=== PATIENT | male | born 1990 | race Caucasian/White ===

== ENCOUNTER 2018-04-20 09:40 | Emergency (ER) | payer OTHER ==
[~2018-04-20] VITALS: Ht 182.9 cm; Wt 147.4 kg
[2018-04-20] MEDS ORDERED: FLEXERIL PO (11:25)
[2018-04-20] MEDS ORDERED: HYDROCODON-ACE1 EAC7 PO (11:25)
[2018-04-20] MEDS ORDERED: IBUPROFEN 800800 MG PO (11:25)
[2018-04-20 11:44] VITALS: BP 150/105
== END 2018-04-20 11:45 | disposition home or self-care (01) ==
LOC: M.ERS 09:40
DX: M54.5 Low back pain (principal); F17.200 Nicotine dependence, unspecified, uncomplicated